=== PATIENT | male | born 1995 | race Caucasian/White ===

== ENCOUNTER 2017-10-28 01:43 | Emergency (ER) | payer OTHER ==
[2017-10-28] MEDS ORDERED: fentaNYL* 50 MCG/ML 2 ML VIAL (100 MCG VIAL) ONE (02:27)
[2017-10-28] MEDS ORDERED: Midazolam concentrated* 5 MG/ML 1 ml VIAL ONE (02:27)
--- NOTE | 2017-10-28 03:58 | ED ---
Stevie Perdomo Rebecca, scribed for Gui Wick MD on 10/28/17 at 0216 . Upper Extremity Pain - HPI Summary HPI Summary: Pt is a 21 y/o M who presents to ED c/o left shoulder pain s/p fall. Pt reports that at 0130 this morning, he had been dancing when he fell onto the shoulder, putting his left arm out to catch the fall. On triage, pain is moderate, ranked 6/10. Sx aggravated by movement, alleviated by nothing. Pt suspects a dislocation. No PMHx shoulder dislocations. Last ate at 1830 last night. - History of Current Complaint Chief Complaint: EDShouldAnne MarielaUzair Stated Complaint: LEFT SHOULDER INJURY Time Seen by Provider: 10/28/17 01:59 Hx Obtained From: Patient Mechanism Of Injury: Fall From A Standing Position Onset/Duration: Started Hours Ago, Still Present Severity Currently: Moderate - 6/10 Pain Location: Shoulder - Left Aggravating Factor(s): Movement Alleviating Factor(s): Nothing Associated Signs & Symptoms: Positive: Negative - Allergies/Home Medications Allergies/Adverse Reactions: Allergies Allergy/AdvReac Type Severity Reaction Status Date / Time No Known Allergies Allergy Verified 10/28/17 01:53 PMH/Surg Hx/FS Hx/Imm Hx Endocrine/Hematology History: Denies: Hx Diabetes Cardiovascular History: Denies: Hx Coronary Artery Disease Infectious Disease History: No Infectious Disease History: Denies: Traveled Outside the [place] in Last 30 Days - Family History Known Family History: Negative: Diabetes - Social History Alcohol Use: Rare Substance Use Type: Reports: None Smoking Status (MU): Never Smoked Tobacco Review of Systems Negative: Fever Positive: Arthralgia - L shoulder pain All Other Systems Reviewed And Are Negative: Yes Physical Exam - Summary Physical Exam Summary: VITAL SIGNS: Reviewed. GENERAL: ~Patient is a well-developed and nourished male who is lying comfortable in the stretcher. Patient is not in any acute respiratory distress. HEAD AND FACE: No signs of trauma. No ecchymosis, hematomas or skull depressions. No sinus tenderness. EYES: PERRLA, EOMI x 2, No injected conjunctiva, no nystagmus. EARS: Hearing grossly intact. Ear canals and tympanic membranes are within normal limits. MOUTH: Oropharynx within normal limits. NECK: Supple, trachea is midline, no adenopathy, no JVD, no carotid bruit, no c- spine tenderness, neck with full ROM. CHEST: Symmetric, no tenderness at palpation LUNGS: Clear to auscultation bilaterally. No wheezing or crackles. CVS: Regular rate and rhythm, S1 and S2 present, no murmurs or gallops appreciated. EXTREMITIES: Tenderness in the left shoulder with deformity. No edema, no cyanosis or clubbing. NEURO: Alert and oriented x 3. No acute neurological deficits. Speech is normal and follows commands. SKIN: Dry and warm Triage Information Reviewed: Yes Vital Signs On Initial Exam: Initial Vitals Temp Pulse Resp BP Pulse Ox 98.3 F 84 20 151/98 97 10/28/17 01:50 10/28/17 01:50 10/28/17 01:50 10/28/17 01:50 10/28/17 01:50 Vital Signs Reviewed: Yes Procedures - Procedure Summary Procedure Summary: Moderate sedation: Followed protocol for moderate sedation. Used Fentanyl 100 and Versed 5 which was enough to do the procedure. Vital signs remained stable throughout the procedure and no reversal agent was used. Procedure time was 15 minutes. - Joint Reduction Joint Reduction Site: shoulder (L) Conscious Sedation: Yes - Moderate sedation Reduction Attempts: 1 Pre-Procedure NV Exam: Yes Post Joint Reduction Film: joint reduced Diagnostics - Vital Signs Vital Signs Temp Pulse Resp BP Pulse Ox 10/28/17 01:50 98.3 F 84 20 151/98 97 - Laboratory Lab Statement: Any lab studies that have been ordered have been reviewed, and results considered in the medical decision making process. - Radiology Shoulder XR Xray Interpretation: Positive (See Comments) - Anterior dislocation of the shoulder. Pending official report. Radiology Interpretation Completed By: ED Physician Shoulder XR #2 Xray Interpretation: Positive (See Comments) - Reduced, good alignment. Pending official report. Radiology Interpretation Completed By: ED Physician Re-Evaluation - Re-Evaluation First Eval Re-Evaluation Time: 02:50 Comment: Joint reduction. Second Eval Re-Evaluation Time: 03:45 Comment: Pt is awake. Discussed D/C plan. Course/Dx - Course Assessment/Plan: Pt is a 21 y/o M who presents to ED c/o mdoerate left shoulder pain and suspected dislocation s/p fall on an outstretched hand at 0130 while dancing. Sx aggravated by movemeny. No PMHx shoulder dislocations. Last ate at 1830 last night. Shoudle XR shows a disloacted shoulder. Pt was moderately sedated using fentanyl 100 and versed 5 and the joint was successfully reduced with 1 attempt, confirmed by XR. Pt will be D/C to home with Dx of left shoulder dislocation. Understands and agrees. - Diagnoses Provider Diagnoses: Dislocation of left shoulder joint Discharge - Sign-Out/Discharge Documenting (check all that apply): Discharge/Admit/Transfer - Discharge - Discharge Plan Condition: Stable Disposition: HOME Patient Education Materials: Shoulder Dislocation Exercises (GEN), Shoulder Dislocation (ED) Referrals: [facility] - Chaitanya WORTHY [Medical Doctor] - 3 Days Additional Instructions: RETURN TO ED FOR ANY NEW OR WORSENING SYMPTOMS. The documentation as recorded by the Stevie fowler Rebecca accurately reflects the service I personally performed and the decisions made by , Gui Wick MD.
[2017-10-28 04:25] VITALS: BP 131/74
--- NOTE | 2017-10-28 08:03 | RAD ---
HISTORY: Left shoulder pain COMPARISONS: None VIEWS: 3, Frontal internal rotation, external rotation, and outlet views of the left shoulder FINDINGS: BONE DENSITY: Normal. BONES: There is no displaced fracture. JOINTS: There is no arthropathy. ALIGNMENT: There is anterior dislocation of the humeral head with respect to the glenoid fossa. SOFT TISSUES: Unremarkable. OTHER FINDINGS: None. IMPRESSION: LEFT SHOULDER DISLOCATION.
--- NOTE | 2017-10-28 08:04 | RAD ---
HISTORY: Post reduction COMPARISONS: Left shoulder dated October 28, 2017 at 2:16 AM VIEWS: 3, Frontal internal rotation, external rotation, and outlet views of the left shoulder at 2:58 AM FINDINGS: BONE DENSITY: Normal. BONES: There is flattening of the humeral head consistent with a Hill-Sachs fracture. There is no appreciable osseous Bank[place]. JOINTS: There is no arthropathy. ALIGNMENT: There has been interval reduction of the humeral head dislocation. SOFT TISSUES: Unremarkable. OTHER FINDINGS: None. IMPRESSION: 1. INTERVAL REDUCTION OF LEFT SHOULDER DISLOCATION. 2. HILL-SACHS FRACTURE.
== END 2017-10-28 04:23 | disposition home or self-care (01) ==
LOC: ED 01:43
DX: S42.302A Unspecified fracture of shaft of humerus, left arm, initial encounter for closed fracture (principal); W18.30XA Fall on same level, unspecified, initial encounter; Y93.41 Activity, dancing; Y92.9 Unspecified place or not applicable
CPT/HCPCS: 24505; 99156; 99284; J2250; J3010